=== PATIENT | male | born 1955 | race Native Hawaiian/Other Pacific Islander ===

== ENCOUNTER 2021-07-19 13:24 | Outpatient (CLI) | payer OTHER ==
[2021-07-19 14:12] LABS: PLATELET COUNT 206 K/uL (142-355)
[2021-07-19 14:15] LABS: POTASSIUM 4.5 mmol/L (3.6-5.2)
== END 2021-07-19 21:56 | disposition home or self-care (01) ==
LOC: LAB 13:24
PROVIDERS: ATTEND Surgery
DX: E11.621 Type 2 diabetes mellitus with foot ulcer (principal); L97.512 Non-pressure chronic ulcer of other part of right foot with fat layer exposed; L97.412 Non-pressure chronic ulcer of right heel and midfoot with fat layer exposed; Z86.31 Personal history of diabetic foot ulcer; Z09 Encounter for follow-up examination after completed treatment for conditions other than malignant neoplasm
CPT/HCPCS: 80048; 85027; 85652

== ENCOUNTER 2021-08-16 11:10 | Outpatient (CLI) | payer OTHER ==
[2021-08-16 13:51] LABS: PLATELET COUNT 208 K/uL (142-355)
== END 2021-08-16 20:22 | disposition home or self-care (01) ==
LOC: LAB 11:10
PROVIDERS: ATTEND Surgery
DX: L97.412 Non-pressure chronic ulcer of right heel and midfoot with fat layer exposed (principal); E11.621 Type 2 diabetes mellitus with foot ulcer
CPT/HCPCS: 85027; 85652